=== PATIENT | female | born 1995 | race African-American/Black ===

== ENCOUNTER 2023-03-08 23:14 | Emergency (ER) | payer OTHER ==
[~2023-03-08] VITALS: Ht 157.5 cm; Wt 76.8 kg
[2023-03-08 23:24] VITALS: BP 94/55
[2023-03-09] MEDS ORDERED: IBUPROFEN 600 MG TABLET PO ONE (01:15)
[2023-03-09] MEDS ORDERED: AMOXICILLIN TRIHYDRATE 250 MG CAPSULE PO ONE (01:15)
[2023-03-09 01:31] LABS: GLUCOSE,POINT OF CARE 76 MG/DL (70-110)
== END 2023-03-09 01:33 | disposition home or self-care (01) ==
LOC: EMS 23:15
DX: K08.89 Other specified disorders of teeth and supporting structures (principal); F12.90 Cannabis use, unspecified, uncomplicated
CPT/HCPCS: 82962; 99283